=== PATIENT | male | born 1990 | race African-American/Black ===

== ENCOUNTER 2020-12-01 14:48 | Emergency (ER) | payer SELFPAY ==
[~2020-12-01] VITALS: Ht 172.7 cm; Wt 77.0 kg
[2020-12-01] MEDS ORDERED: POLY10DR3 EACHEYE (15:45)
[2020-12-01 16:01] VITALS: BP 115/85
== END 2020-12-01 16:02 | disposition home or self-care (01) ==
LOC: ER 14:48
DX: H10.9 Unspecified conjunctivitis (principal)
CPT/HCPCS: 99282